=== PATIENT | male | born 1965 | race Caucasian/White ===

== ENCOUNTER 2020-11-12 23:04 | Emergency (ER) | payer OTHER ==
[2020-11-13] MEDS ORDERED: Ketorolac 15 MG/ML SDV IM ONE (02:50)
[2020-11-13] MEDS ORDERED: Diazepam 2 MG Tab PO ONE (02:51)
[2020-11-13] MEDS ORDERED: Bupivacaine 0.5% 10 ML SDV INJECT ONE (04:51)
--- NOTE | 2020-11-13 05:43 | EDM.PDOC ---
ED HPI GENERAL MEDICAL PROBLEM - General Chief Complaint: Back Pain or Injury Stated Complaint: BACK PAIN Time Seen by Provider: 11/13/20 02:26 - History of Present Illness INITIAL COMMENTS - FREE TEXT/NARRATIVE: CHIEF COMPLAINT(S): "Back spasms." HISTORY OF PRESENT ILLNESS: This is a 55-year-old man with a past medical history of back pain who presents to the emergency department with "back spasms." The patient states that for approximately 1 week now he has been experiencing spasms in his lower back. He states that it took a turn for the worse last night and today. States that he has had this in the past and it flares up every now and then. He states that this time is for the most pain in his back similar to prior flares. He states that he has 2 bulging disks from a prior work-related injury. He states that they never gave him any money as they closed the case prior to getting an MRI. He describes the pain as prior located in his lower back on the bilateral sides without any radiation down his legs. He denies any urinary incontinence, bowel incontinence or saddle anesthesia. He states that the pain is worse with movement and is hard for him to find a comfortable spot. He states that when he sitting and not moving it is a 7 out of 10. He states however it is difficult for him to walk around secondary to the muscle spasms as soon as he stands up. He states in the past he is taken tramadol and Flexeril and he did try these 2 tablets however they were old and did not seem to work. He denies any fevers, chills, IV drug use, or recent injury. REVIEW OF SYSTEMS: Constitutional: Denies fever, chills. Eyes: Denies eye pain Ears, Nose, Mouth, & Throat: Denies earache Cardiovascular: Denies chest pain Respiratory: Denies shortness of breath Gastrointestinal: Denies Nausea, vomiting, diarrhea, hematochezia, bowel incontinence genitourinary: Denies hematuria, urinary continence skin:Denies a rash MSK: Positive for bilateral lower back pain and spasm Neurological: Denies blurred vision, numbness, tingling, weakness, saddle anesthesia Psychiatric: Denies depression PAST MEDICAL HISTORY: As per history of present illness and as reviewed below otherwise noncontributory. SURGICAL HISTORY: As per history of present illness and as reviewed below otherwise noncontributory. SOCIAL HISTORY: As per history of present illness and as reviewed below otherwise noncontributory. FAMILY HISTORY: As per history of present illness and as reviewed below otherwise noncontributory. EXAMINATION OF ORGAN SYSTEMS/BODY AREAS: Constitutional: Blood pressure was 159/88, heart rate 81, respiratory rate 18 with an oxygen saturation of 98% on room air. Temperature 36.4 General: Middle-aged man who is sitting in a wheelchair rubbing his lower back and does not appear to be in acute distress Psychiatric: Appropriate mood and affect. Eyes: No scleral icterus or conjunctival erythema ENMT: Moist mucous membranes. No pharyngeal erythema Cardiovascular: Regular, rate, and rhythm. No gallops, murmurs, or rubs. Bilateral upper extremity pulses symmetric and intact. No peripheral edema. No JVD. Respiratory: Lungs clear to auscultation bilaterally. No wheezes, rales, or rhonchi. Gastrointestinal: Soft, non-tender, non-distended. Normoactive bowel sounds Genitourinary: No suprapubic tenderness Musculoskeletal: Normal range of motion. There is no cervical, thoracic, or lumbar midline tenderness. There is no rash on the back. There is bilateral lower lumbar paraspinal tense musculature with minimal tenderness to palpation. Skin: No lesions or abrasions. Neurological: Alert, GCS 15 strength and sensation grossly intact in upper and lower extremities bilaterally MEDICAL DECISION MAKING AND COURSE IN THE ED WITH INTERPRETATION/REVIEW OF DIAGNOSTIC STUDIES: This is a 55-year-old man with a past medical history of chronic back pain who presents to the emergency department with what appears to be acute on chronic lumbar paraspinal tenderness. Patient states that he has significant problems with his back. He states that he got a shot in his buttock before and it completely took his pain away. He states that this was a steroid. 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 Otherwise there is no abnormality. On review the patient's ED visit in the past they provided him with Toradol and Valium. I did discuss that I could try these medications again to see if it would help him. He was amenable to this plan. At this time the patient does not have any red flag symptoms and I do not believe any repeat imaging is indicated at this time. His back pain seems to be musculoskeletal in nature and more likely back spasm and degenerative disc disease or arthritis however this is also considered. On reevaluation after administration of Toradol and Valium the patient reported only mild improvement. He kept reintegrating that this is Workmen's Comp. and he should have follow-up on it however they close the case. In addition he is adamant that they provided him with a long-acting intramuscular injection into his buttock. I did discuss with the patient this time I reviewed his chart and no such medication was provided other than Toradol and Valium. I did have a lengthy conversation with the patient regarding lower lumbar back pain including muscle spasm. I did discuss with him that our goal today is not to completely relieve his pain however we will try to help him manage with his pain. I did discuss with him that I would not be giving him any opiates as these cause increased risk of falls and does nothing for chronic back pain. I did offer the patient a lidocaine patch at this time however he is concerned that the patch feels cold. Therefore at this time I did discuss with him doing trigger point injections where the muscles are most tense in his lower lumbar paraspinal muscles. He was amenable to this plan. It was also at the time that I discussed with the patient that given the chronicity of his pain he would likely need to follow-up with primary care physician and get a referral to pain specialist for continued management of pain or a referral to orthopedics for continued management of his back pain. He states that he does not have insurance and that he is not able to do that because he cannot pay for it. I did discuss with him that he could apply for insurance at the medical front desk specialist including Medicaid. He is to look for insurance. He did express understanding. Using 0.5% bupivacaine approximately 3 inches lateral to the lumbar spine bilaterally approximately 5 cc of 0.5% bupivacaine was injected. This area was cleaned and a patch was applied. On reevaluation the patient was able to stand with lessening symptoms of muscle spasm. He was able to take a few steps and appeared to be more ambulatory. I did discuss who we had discussed before and he was amenable to discharge at this time. He was given strict return precautions. DISPOSITION: The patient was discharged home in stable condition. The patient will follow up with primary care physician, pain specialist, or orthopedics CONDITION: Fair PROCEDURES: Bilateral paralumbar spinal muscle trigger point injection FINAL IMPRESSION(S)/DIAGNOSES: 1. Acute on chronic lumbar musculoskeletal pain Adán Ruvalcaba M.D. Lower Back Pain Score (Numeric/FACES): 10 - Related Data Allergies Allergy/AdvReac Type Severity Reaction Status Date / Time No Known Allergies Allergy Verified 11/13/20 02:23 Home Meds: Home Meds Lidocaine 5% [Lidoderm 5%] 1 patch TOP DAILY #7 patch 11/13/20 [Rx] methocarbamoL [Methocarbamol] 750 mg PO QID #28 tablet 11/13/20 [Rx] Past Medical History - Past Health History Medical/Surgical History: Denies Medical/Surgical History HEENT History: Reports: None Cardiovascular History: Reports: None Respiratory History: Reports: None Gastrointestinal History: Reports: None Genitourinary History: Reports: None Musculoskeletal History: Reports: Back Pain, Chronic Neurological History: Reports: None Psychiatric History: Reports: None Endocrine/Metabolic History: Reports: None Hematologic History: Reports: None Oncologic (Cancer) History: Reports: None Dermatologic History: Reports: None - Infectious Disease History Infectious Disease History: Reports: Chicken Pox, Shingles - Past Surgical History Head Surgeries/Procedures: Reports: None Social & Family History - Family History Family Medical History: No Pertinent Family History Musculoskeletal: Reports: None - Caffeine Use Caffeine Use: Reports: Coffee - Recreational Drug Use Recreational Drug Use: No ED ROS GENERAL - Review of Systems Review Of Systems: See Below ED EXAM, GENERAL - Physical Exam Exam: See Below Course - Vital Signs Last Recorded V/S: Last Vital Signs Temp 36.4 C 11/13/20 02:24 Pulse 76 11/13/20 05:47 Resp 18 11/13/20 05:47 BP 147/86 H 11/13/20 05:47 Pulse Ox 97 11/13/20 05:47 - Orders/Labs/Meds Meds: Medications Discontinued Medications Generic Name Dose Route Start Last Admin Trade Name Freq PRN Reason Stop Dose Admin Bupivacaine HCl 10 ml 11/13/20 04:51 11/13/20 04:56 Bupivacaine 0.5% 10 Ml Sdv INJECT 11/13/20 04:52 10 ml ONETIME ONE Administration Diazepam 2 mg 11/13/20 02:51 11/13/20 03:27 Diazepam 2 Mg Tab PO 11/13/20 02:52 2 mg ONETIME ONE Administration Ketorolac Tromethamine 30 mg 11/13/20 02:50 11/13/20 03:27 Ketorolac 15 Mg/Ml Sdv IM 11/13/20 02:51 30 mg ONETIME ONE Administration Departure - Departure Time of Disposition: 05:42 Disposition: Home, Self-Care 01 Condition: Fair Clinical Impression: Chronic back pain, Lumbar paraspinal muscle spasm - Discharge Information *PRESCRIPTION DRUG MONITORING PROGRAM REVIEWED*: No *COPY OF PRESCRIPTION DRUG MONITORING REPORT IN PATIENT CLARA: No Prescriptions: Lidocaine 5% [Lidoderm 5%] 1 patch TOP DAILY #7 patch methocarbamoL [Methocarbamol] 750 mg PO QID #28 tablet Instructions: Muscle Cramps and Spasms, [id number], Managing Pain Without Opioids, What You Need to Know About Chronic Back Pain, Chronic Back Pain, [id number] Referrals: PCP,None [Primary Care Provider] - Forms: ED Department Discharge Additional Instructions: You evaluate today on an emergent basis. As discussed your back spasms are likely to continue. I would like you to take a multivitamin. I am going to prescribe you a lidocaine patch to be used in the same area that we injected today. I would like you to take Tylenol and Motrin alternating every 3 hours as described below. In addition I will provide you with a muscle relaxer called Robaxin. It is going to be important to alternate ice and heat 20 minutes 4 times a day. In addition the longer use that the worst the pain is going to get. So I do recommend that you start walking and increase your activity. It is going to be important that you follow-up with your primary care physician so there can be a full pain treatment management. You may follow-up with orthopedics to get further recommendations and follow-up with pain specialist. If you have any worsening symptoms such as urinating on yourself, defecating on yourself, or have numbness when you are wiping please return to the emergency department. Please use: Tylenol 500-1000mg every 6 hours (DO NOT TAKE MORE THAN 4000mg in 1 day) Ibuprofen 400mg every 6 hours (Take with food as it can cause ulcers, GI upset) Example schedule: 8:00 AM (Tylenol 500-1000mg) 11:00 AM (Ibuprofen 400mg) 2:00 PM (Tylenol 500-1000mg) 5:00 PM (Ibuprofen 400mg) In addition to Tylenol and Motrin you may use over the counter creams such as Voltaren Cream or Lidocaine Cream (Lidoderm) as needed 4 times a day for symptomatic relief. Ice/Heat the area 20 minutes 4 times per day [facility] Professional [facility] [address], [address] [place] [address] [facility] [address] [place] [id number] [facility] [address] [place] [id number] [facility] [address] [place] [id number] The patient is informed of any results of their evaluation and diagnostic workup and all questions are answered. They are given discharge instructions and return precautions. The patient is stable for discharge. The patient states they understand and agree with the plan and that they will return if their symptoms get worse or if they have any new concerns. The following information is given to patients seen in the emergency department who are being discharged to home. This information is to outline your options for follow-up care. We provide all patients seen in our emergency department with a follow-up referral. The need for follow-up, as well as the timing and circumstances, are variable depending upon the specifics of your emergency department visit. If you don't have a primary care physician on staff, we will provide you with a referral. We always advise you to contact your personal physician following an emergency department visit to inform them of the circumstance of the visit and for follow-up with them and/or the need for any referrals to a consulting specialist. The emergency department will also refer you to a specialist when appropriate. This referral assures that you have the opportunity for follow-up care with a specialist. All of these measure are taken in an effort to provide you with optimal care, which includes your follow-up. Under all circumstances we always encourage you to contact your private physician who remains a resource for coordinating your care. When calling for follow-up care, please make the office aware that this follow-up is from your recent emergency room visit. If for any reason you are refused follow-up, please contact the [facility] Emergency Department at and asked to speak to the emergency department charge nurse. Sepsis Event Note (ED) - Evaluation Sepsis Screening Result: No Definite Risk
[2020-11-13 05:48] VITALS: BP 147/86; PULSE 76
== END 2020-11-13 05:48 | disposition home or self-care (01) ==
LOC: MW.ED 23:04
DX: M62.830 Muscle spasm of back (principal)
CPT/HCPCS: 20552; 96372; 99283; A9270; J1885; J3490; 64450; 99284

== ENCOUNTER 2023-07-17 18:22 | Observation (INO) | payer MEDICAID ==
[2023-07-17 20:23] LABS: CORONAVIRUS COVID-19 NAA POSITIVE (NEGATIVE); INFLUENZA A NAA NEGATIVE (NEGATIVE); INFLUENZA B NAA NEGATIVE (NEGATIVE)
[2023-07-17 20:56] LABS: BASOPHILS ABSOLUTE AUTO 0.06 K/uL (0.00-0.20); BASOPHILS PERCENT AUTO 0.8 % (0.0-1.0); EOSINOPHILS ABSOLUTE AUTO 0.07 K/uL (0.00-0.45); EOSINOPHILS PERCENT AUTO 0.9 % (0.0-6.0); HEMATOCRIT 37.4 % (42.0-52.0); IMMATURE GRAN ABSOLUTE AUTO 0.03 K/uL (0.00-0.05); IMMATURE GRAN PERCENT AUTO 0.4 % (0.0-0.4); LYMPHOCYTES ABSOLUTE AUTO 1.67 K/uL (1.00-4.80); LYMPHOCYTES PERCENT AUTO 22.6 % (24.0-44.0); MEAN CORPUSCULAR HEMOGLOBIN 35.1 pg (28.0-32.0); MEAN CORPUSCULAR HGB CONC 37.4 g/dL (32.0-36.0); MEAN CORPUSCULAR VOLUME 93.7 fL (83.0-99.0); MEAN PLATELET VOLUME 9.4 fL (9.4-12.4); MONOCYTES ABSOLUTE AUTO 0.71 K/uL (0.00-0.80); MONOCYTES PERCENT AUTO 9.6 % (0.0-8.0); NEUTROPHILS ABSOLUTE AUTO 4.85 K/uL (1.80-7.70); NEUTROPHILS PERCENT AUTO 65.7 % (41.0-71.0); PLATELET COUNT,PLT 202 K/uL (150-400); RED BLOOD CELL COUNT 3.99 M/uL (4.52-5.90); WHITE BLOOD CELL COUNT,WBC 7.39 K/uL (3.9-11.3)
[2023-07-17 21:38] LABS: ALBUMIN 2.5 g/dL (3.4-5.0); EST CRCL DRUG DOSING (CG) 112.67 mL/min
[2023-07-17 22:11] LABS: A/G RATIO 0.5 (0.9-1.6); CALCIUM 8.5 mg/dL (8.5-10.1); CARBON DIOXIDE,CO2 26.5 mmol/L (21.0-32.0); CREATININE 0.7 mg/dL (0.8-1.3); PROTEIN TOTAL,TP 7.2 g/dL (6.4-8.2)
[2023-07-17 22:13] LABS: POTASSIUM,K 2.4 mmol/L (3.5-5.1)
[2023-07-17] MEDS: Potassium Bicarbonate 25 MEQ Tab.EFF PO ONE (22:34)
[2023-07-17] MEDS: Potassium Chloride 20 MEQ in Premix Bag 1 BAG IV ONE (22:40)
[2023-07-17] MEDS: Sodium Chloride 0.9% 250 ML IV ONE (22:40)
[2023-07-17] MEDS ORDERED: Albuterol/Ipratropium 3.0-0.5 MG/3 ML Neb Soln NEB PRN (22:44)
[2023-07-17] MEDS ORDERED: Acetaminophen 325 MG Tab PO PRN (22:44)
[2023-07-17] MEDS ORDERED: Ondansetron 4 MG/2 ML SDV IVPUSH PRN (22:44)
[2023-07-17] MEDS: Potassium Chloride 20 MEQ Tab.ER PO ONE (22:48)
[2023-07-17] MEDS ORDERED: 50% Dextrose in Water 50 ML Syringe IVPUSH PRN (22:53)
[2023-07-17] MEDS ORDERED: Glucagon,Human Recombinant 1 MG Vial IM PRN (22:53)
[2023-07-17] MEDS: Magnesium Sulfate/Water 2 GM in Premix Bag 1 BAG IV ONE (23:22)
[2023-07-17] MEDS: Sodium Chloride 0.9% 1,000 ML IV SCH (23:23)
[2023-07-18] MEDS: Nirmatrelvir/Ritonavir 300 MG/100 MG Dosepak PO SCH (01:24)
[2023-07-18] MEDS: Insulin Aspart 100 Units/ML 3 ML Pen SUBCUT SCH (01:47)
[2023-07-18 06:11] LABS: BASOPHILS ABSOLUTE AUTO 0.05 K/uL (0.00-0.20); BASOPHILS PERCENT AUTO 0.7 % (0.0-1.0); EOSINOPHILS ABSOLUTE AUTO 0.09 K/uL (0.00-0.45); EOSINOPHILS PERCENT AUTO 1.3 % (0.0-6.0); HEMATOCRIT 34.1 % (42.0-52.0); HEMOGLOBIN 12.4 g/dL (14.0-18.0); IMMATURE GRAN ABSOLUTE AUTO 0.03 K/uL (0.00-0.05); IMMATURE GRAN PERCENT AUTO 0.4 % (0.0-0.4); LYMPHOCYTES ABSOLUTE AUTO 1.51 K/uL (1.00-4.80); MEAN CORPUSCULAR HEMOGLOBIN 34.7 pg (28.0-32.0); MEAN CORPUSCULAR HGB CONC 36.4 g/dL (32.0-36.0); MEAN CORPUSCULAR VOLUME 95.5 fL (83.0-99.0); MEAN PLATELET VOLUME 9.2 fL (9.4-12.4); MONOCYTES ABSOLUTE AUTO 0.65 K/uL (0.00-0.80); NEUTROPHILS ABSOLUTE AUTO 4.86 K/uL (1.80-7.70); NEUTROPHILS PERCENT AUTO 67.6 % (41.0-71.0); PLATELET COUNT,PLT 182 K/uL (150-400); RED BLOOD CELL COUNT 3.57 M/uL (4.52-5.90); WHITE BLOOD CELL COUNT,WBC 7.19 K/uL (3.9-11.3)
[2023-07-18 06:39] LABS: CALCIUM 7.5 mg/dL (8.5-10.1); CARBON DIOXIDE,CO2 27.7 mmol/L (21.0-32.0); CREATININE 0.6 mg/dL (0.8-1.3); EST CRCL DRUG DOSING (CG) 131.44 mL/min; MAGNESIUM 1.8 mg/dL (1.8-2.4); PHOSPHORUS 2.6 mg/dL (2.6-4.7); POTASSIUM,K 2.7 mmol/L (3.5-5.1)
[2023-07-18 08:08] LABS: TSH ULTRASENSITIVE 3.14 uIU/mL (0.36-3.74)
[2023-07-18 09:09] LABS: HIV12 AG/AB 4TH GEN W/REFLEX < 0.1 INDEX (<1.0)
[2023-07-18] MEDS: Potassium Chloride 20 MEQ Tab.ER PO ONE ×2 (09:12→16:49)
[2023-07-18] MEDS: Potassium Chloride 20 MEQ Tab.ER PO SCH (09:13)
[2023-07-18] MEDS: Iopamidol 755 MG/ML 500 ML Multipack Bottle IVPUSH STA (09:13)
[2023-07-18] MEDS ORDERED: LORazepam 2 MG/ML SDV IVPUSH PRN (09:27)
[2023-07-18] MEDS: Enoxaparin 40 MG/0.4 ML Syringe SUBCUT SCH (11:42)
[2023-07-18] MEDS: Nicotine 21 MG/24 Hr Patch TRDERM SCH (11:42)
[2023-07-18] MEDS: Magnesium Sulfate/Water 2 GM in Premix Bag 1 BAG IV ONE (11:46)
[2023-07-18] MEDS ORDERED: Potassium Chloride 20 MEQ Tab.ER PO ONE (13:00)
[2023-07-18 13:05] LABS: CALCIUM 7.8 mg/dL (8.5-10.1); CARBON DIOXIDE,CO2 28.3 mmol/L (21.0-32.0); CREATININE 0.7 mg/dL (0.8-1.3); EST CRCL DRUG DOSING (CG) 112.67 mL/min; POTASSIUM,K 2.8 mmol/L (3.5-5.1)
[2023-07-18] MEDS: Insulin Glargine,Hum.Rec.Anlog 100 UNIT/ML 3 ML Pen SUBCUT SCH (22:28)
[2023-07-19] MEDS: Potassium Chloride 20 MEQ Tab.ER PO ONE (00:03)
[2023-07-19 06:00] LABS: BASOPHILS ABSOLUTE AUTO 0.05 K/uL (0.00-0.20); EOSINOPHILS ABSOLUTE AUTO 0.15 K/uL (0.00-0.45); EOSINOPHILS PERCENT AUTO 3.1 % (0.0-6.0); HEMATOCRIT 37.9 % (42.0-52.0); HEMOGLOBIN 13.4 g/dL (14.0-18.0); IMMATURE GRAN ABSOLUTE AUTO 0.02 K/uL (0.00-0.05); IMMATURE GRAN PERCENT AUTO 0.4 % (0.0-0.4); LYMPHOCYTES ABSOLUTE AUTO 1.65 K/uL (1.00-4.80); LYMPHOCYTES PERCENT AUTO 33.7 % (24.0-44.0); MEAN CORPUSCULAR HEMOGLOBIN 35.3 pg (28.0-32.0); MEAN CORPUSCULAR HGB CONC 35.4 g/dL (32.0-36.0); MEAN CORPUSCULAR VOLUME 99.7 fL (83.0-99.0); MEAN PLATELET VOLUME 9.6 fL (9.4-12.4); MONOCYTES ABSOLUTE AUTO 0.46 K/uL (0.00-0.80); MONOCYTES PERCENT AUTO 9.4 % (0.0-8.0); NEUTROPHILS ABSOLUTE AUTO 2.57 K/uL (1.80-7.70); NEUTROPHILS PERCENT AUTO 52.4 % (41.0-71.0); PLATELET COUNT,PLT 209 K/uL (150-400)
[2023-07-19 06:20] LABS: A/G RATIO 0.5 (0.9-1.6); ALBUMIN 2.2 g/dL (3.4-5.0); CALCIUM 7.9 mg/dL (8.5-10.1); CARBON DIOXIDE,CO2 30.2 mmol/L (21.0-32.0); CREATININE 0.6 mg/dL (0.8-1.3); EST CRCL DRUG DOSING (CG) 131.44 mL/min; PROTEIN TOTAL,TP 6.4 g/dL (6.4-8.2)
[2023-07-19 12:14] VITALS: BP 130/87; PULSE 98
== END 2023-07-19 13:10 | disposition home or self-care (01) ==
LOC: MW.ED 18:22 → MW.MS 22:38
PROVIDERS: ADMIT Family Medicine; ATTEND Family Medicine
DX: E87.6 Hypokalemia (principal); U07.1 COVID-19; R63.4 Abnormal weight loss; R55 Syncope and collapse; R53.1 Weakness; M54.50 Low back pain, unspecified; F17.200 Nicotine dependence, unspecified, uncomplicated; Z79.899 Other long term (current) drug therapy
CPT/HCPCS: 0240U; 36415; 70470; 71046; 71270; 74178; 80048; 80053; 80061; 82607; 82947; 83036; 83735; 84100; 84443; 85025; 87389; 93005; 93880; 96361; 96365; 96366; 96368; 96372; 96376; 99285; A9270; G0378; J1650; J1815; J3475; J3480; J7030; J7050; Q9967; 99222; 99239; 99284

== ENCOUNTER 2024-09-25 05:25 | Emergency (ER) | payer MEDICAID, OTHER ==
[2024-09-25 05:37] VITALS: BP 143/89; PULSE 104
[2024-09-25 06:34] LABS: BASOPHILS ABSOLUTE AUTO 0.07 K/uL (0.00-0.20); BASOPHILS PERCENT AUTO 1.4 % (0.0-1.0); EOSINOPHILS ABSOLUTE AUTO 0.15 K/uL (0.00-0.45); EOSINOPHILS PERCENT AUTO 3.1 % (0.0-6.0); HEMATOCRIT 47.1 % (42.0-52.0); HEMOGLOBIN 16.9 g/dL (14.0-18.0); IMMATURE GRAN ABSOLUTE AUTO 0.02 K/uL (0.00-0.05); IMMATURE GRAN PERCENT AUTO 0.4 % (0.0-0.4); LYMPHOCYTES ABSOLUTE AUTO 1.35 K/uL (1.00-4.80); LYMPHOCYTES PERCENT AUTO 27.5 % (24.0-44.0); MEAN CORPUSCULAR HEMOGLOBIN 34.8 pg (28.0-32.0); MEAN CORPUSCULAR HGB CONC 35.9 g/dL (32.0-36.0); MEAN CORPUSCULAR VOLUME 97.1 fL (83.0-99.0); MEAN PLATELET VOLUME 9.3 fL (9.4-12.4); MONOCYTES ABSOLUTE AUTO 0.69 K/uL (0.00-0.80); MONOCYTES PERCENT AUTO 14.1 % (0.0-8.0); NEUTROPHILS ABSOLUTE AUTO 2.63 K/uL (1.80-7.70); NEUTROPHILS PERCENT AUTO 53.5 % (41.0-71.0); PLATELET COUNT,PLT 176 K/uL (150-400); RED BLOOD CELL COUNT 4.85 M/uL (4.52-5.90); WHITE BLOOD CELL COUNT,WBC 4.91 K/uL (3.9-11.3)
[2024-09-25 06:46] LABS: HEMOGLOBIN A1C 7.7 %
[2024-09-25 06:59] LABS: A/G RATIO 0.8 (0.9-1.6); ALBUMIN 3.4 g/dL (3.4-5.0); BILIRUBIN TOTAL 0.9 mg/dL (0.2-1.0); CALCIUM 8.8 mg/dL (8.5-10.1); CARBON DIOXIDE,CO2 26.6 mmol/L (21.0-32.0); CREATININE 0.7 mg/dL (0.8-1.3); EST CRCL DRUG DOSING (CG) 118.24 mL/min; MAGNESIUM 1.6 mg/dL (1.8-2.4); POTASSIUM,K 3.4 mmol/L (3.5-5.1); PROTEIN TOTAL,TP 7.9 g/dL (6.4-8.2)
[2024-09-25] MEDS: Magnesium Oxide 400 MG Tab PO ONE (07:28)
[2024-09-25] MEDS: Multivitamin Tab PO ONE (07:28)
[2024-09-25] MEDS: Potassium Chloride 20 MEQ Tab.ER PO ONE (07:28)
[2024-09-25] MEDS: Folic Acid 1 MG Tab PO ONE (07:28)
[2024-09-25] MEDS: Thiamine 100 MG Tab PO ONE (07:28)
== END 2024-09-25 07:34 | disposition home or self-care (01) ==
LOC: MW.ED 05:25
DX: Z02.89 Encounter for other administrative examinations (principal); E11.65 Type 2 diabetes mellitus with hyperglycemia; F10.120 Alcohol abuse with intoxication, uncomplicated; E83.42 Hypomagnesemia; F17.200 Nicotine dependence, unspecified, uncomplicated; Z86.16 Personal history of COVID-19; Z79.4 Long term (current) use of insulin; Z79.84 Long term (current) use of oral hypoglycemic drugs; Z79.899 Other long term (current) drug therapy
CPT/HCPCS: 36415; 80053; 80307; 83036; 83735; 85025; 99283; A9270